=== PATIENT | female | born 1965 | race Caucasian/White ===

== ENCOUNTER → 2021-12-27 | Outpatient (REF) | payer MEDICARE, MEDICAID | LOC: M SFHCDERM 13:56 | PROVIDERS: ATTEND Nurse Practitioner Family | DX: L57.0 Actinic keratosis (principal) | CPT/HCPCS: 11102; 17110; 88305; G0463 ==

== ENCOUNTER → 2024-01-22 | Outpatient (REF) | payer MEDICARE, MEDICAID | LOC: M SFHCDERM 17:47 | PROVIDERS: ATTEND Physician Assistant | DX: D18.01 Hemangioma of skin and subcutaneous tissue (principal); L85.9 Epidermal thickening, unspecified ==